=== PATIENT | male | born 1970 | race African-American/Black ===

== ENCOUNTER 2018-09-28 08:40 | Emergency (ER) | payer MEDICAID, MEDICARE ==
[2018-09-28 09:21] LABS: #Basophils 0.1 thou/uL (0.0-0.2); #Eosinphils 0.1 thou/uL (0.0-0.7); #Lymphocytes 2.5 thou/uL (1.20-3.40); #Monocytes 0.4 thou/uL (0.11-0.59); #Neutrophils 4.1 thou/uL (1.40-6.50); %Basophils 1.1 % (0.0-1.0); %Eosinophils 1.3 % (0.0-10.0); %Lymphocytes 34.6 % (21.0-51.0); %Monocytes 5.1 % (0.0-10.0); %Neutrophils 57.9 % (42.0-75.0); Hemoglobin 12.6 g/dL (14.0-18.0); Mean Corpuscular HGB CONC 31.7 g/dL (32.0-36.0); Mean Corpuscular Hemoglobin 22.7 pg (27.0-31.0); Mean Corpuscular Volume 71.7 fL (78.0-98.0); Mean Platelet Volume 11.5 fL (7.4-10.4); Platelet Count 139 thou/uL (130-400); RBC Distribution Width 16.9 % (11.5-14.5); Red Blood Cell (RBC) Count 5.53 mill/uL (4.70-6.10); White Blood Cell (WBC) Count 7.1 thou/uL (4.8-10.8)
--- NOTE | 2018-09-28 09:39 | RAD ---
Chest one view HISTORY: Chest pain. FINDINGS: No comparison. Cardiac silhouette is magnified and upper limits of normal in size. Pulmonar y vasculature is accentuated by shallow inspiration. Mediastinum is midline. Projecting over the lateral aspect of the left mid chest, an oval 1.9 cm soft tissue density is prese nt and may represent a pulmonary nodule. No evidence of pneumothorax or lobar consolidation. tax manager cpa leads overlie the chest. IMPRESSION: Possible left lung nodule, as detailed above. Please consider upright PA and lateral views of the chest for better evaluation before proceeding to CT scan.
[2018-09-28 09:48] LABS: ALT (SGPT) 12 U/L (8-55); AST (SGOT) 9 U/L (5-34); Alkaline Phosphatase 113 U/L (40-150); Anion Gap 18 mmol/L (10-20); BUN (Urea Nitrogen) 30 mg/dL (8.9-20.6); Bilirubin, Total 0.7 mg/dL (0.2-1.2); Calc. Creatinine Clearance 0 mL/min (70-130); Calcium 9.5 mg/dL (7.8-10.44); Carbon Dioxide 29 mmol/L (22-29); Chloride 95 mmol/L (98-107); Estimated GFR-MDRD 12; Globulin 3.4 g/dL (2.4-3.5); Glucose 201 mg/dL (70-105); Potassium 4.2 mmol/L (3.5-5.1); Protein, Total 7.4 g/dL (6.0-8.3); Sodium 138 mmol/L (136-145)
[2018-09-28 09:58] LABS: PTT 30.3 SEC (22.9-36.1)
== END 2018-09-28 12:15 ==
LOC: ERS 08:40
DX: R07.89 Other chest pain (principal); D64.9 Anemia, unspecified; E78.5 Hyperlipidemia, unspecified; M19.90 Unspecified osteoarthritis, unspecified site; E66.01 Morbid (severe) obesity due to excess calories; Z87.891 Personal history of nicotine dependence
CPT/HCPCS: 36415; 71045; 80053; 84484; 85025; 85610; 85730; 93005

== ENCOUNTER 2020-03-19 12:50 | Inpatient (IN) | payer MEDICARE, MEDICAID ==
--- NOTE | 2020-03-19 15:26 | PDOC.FPRHP ---
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 He presented to ED earlier today after having an episode of chest pain on Monday night. He has not had episodes of CP in the past and it has not recurred since Monday. The pain started after eating cheese and waffles and laying down to go to bed. The pain occurred centrally in the epigastric region without radiation to his L chest, back, neck, or L arm. He describes the pain as a burning sensation and he had an episode of vomiting before the pain self- resolved and he was able to go to sleep. He was not physically exerting himself at the time. He has a hx of heartburn. He denies having any heart hx, seeing a center director, or having a cath. His EKG in the ED was reportedly negative and his troponins were 0.015 -> 0.012. His dad had an ID in his 50s and his brother had one in his 40s. He denies hx of ID but endorses a hx of 2 strokes, the most recent of which occurred 2yrs ago. He has L sided deficits, as a result. ED Course: ED: Labetalol 20mg IV given at 0045. Trops and EKG as in HPI - Allergies/Adverse Reactions Allergies Allergy/AdvReac Type Severity Reaction Status Date / Time No Known Allergies Allergy Verified 03/19/20 13:05 - Home Medications Medication Instructions Recorded Confirmed Type Aspirin [Lincoln Chewable Aspirin] 81 mg PO DAILY 06/11/14 03/19/20 History Metoprolol Tartrate 25 mg PO BID 06/11/14 03/19/20 History Acetaminophen 650 mg PO Q4HR PRN 03/19/20 03/19/20 History Calcium Acetate 1,334 mg PO TID 03/19/20 03/19/20 History Famotidine [Pepcid] 20 mg PO BID 03/19/20 03/19/20 History Loperamide HCl [Loperamide] 2 mg PO DAILY PRN 03/19/20 03/19/20 History Loratadine 10 mg PO DAILY PRN 03/19/20 03/19/20 History Pregabalin [Lyrica] 75 mg PO HS 03/19/20 03/19/20 History Sevelamer Carbonate [Renvela] 2,400 mg PO TID-WM 03/19/20 03/19/20 History Temazepam 15 mg PO HS 03/19/20 03/19/20 History Venlafaxine [Effexor XR] 37.5 mg PO DAILY 03/19/20 03/19/20 History - History PMHx: obesity, 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 Smoking hx of 1ppd x20yrs but has since quit. - Review of Systems General: denies: fever/chills Respiratory: denies: cough, shortness of breath Cardiovascular: denies: chest pain Gastrointestinal: denies: nausea, vomiting, diarrhea Genitourinary: reports: incontinence (permanent an) Skin: denies: rashes Musculoskeletal: reports: other (b/l AKAs) - Vital signs BP: [] HR: [] RR: [] Tmax: [] Pox: []% on [] Wt: [] - Physical Exam Constitutional: NAD, awake, alert and oriented HEENT: normocephalic and atraumatic, EOMI, grossly normal vision, grossly normal hearing Neck: supple Heart: RRR, normal S1/S2, no murmurs/rubs/gallops, no edema Lungs: CTAB, no respiratory distress, good air movement Abdomen: soft, non-tender, bowel sounds present, no masses/distention Musculoskeletal: normal structure, other (B/l AKAs) -Musculoskeletal: Mild contracture of L fingers c/w deficits from stroke -Neurological: L sided weakness, still 5/5 Skin: no rash/lesions Psychiatric: normal mood and affect -Psychiatric: Question about mental capacity and concern for intellectual delay. FMR H&P: Results - Labs Result Diagrams: 03/19/20 15:06 03/19/20 15:06 FMR H&P: A/P - Plan This is a 50M who presented to the ED for an episode of CP and was admitted for a CP r/o. Chest pain - Low suspicion for ACS. Suspect GERD as the underlying cause but pt has multiple risk factors for heart disease - EKG nml, trops neg x3 - ASA, prn SL nitro - Tele obs - NPO at [place] for am pharm stress test. If negative, plan for discharge. If positive, will consult cards. ESRD, on HD - Technician Telecommunication Systems is Dr. Poe, who is aware of pt's admission - HD schedule is //Sat. Receiving HD today T2DM - Likely cause of ESRD. Known cause of b/l AKA - Not on any DM medications - ACHS accu-checks - Hypoglycemia protocol ordered B/l AKAs - As a complication of DM HTN - Continue home meds - BP 188/98 on arrival. HD should help lower this GERD - prn TUMS - home Pepcid Permanent an catheter - An care PVD - Likely contributing factor to b/l AKAs - - Starting Atorvastatin 40mg HLD - ASA, statin Obesity Hx of CVA - Per pt, has had 2. Most recent 2 yrs ago - LUE deficits - ASA, statin Dispo: admit to tele obs, expected LOS <48hrs. Code: Full IVF: N/A Diet: CC 1800kcal PCP: Karan FMR H&P: Upper Level - Pertinent history PCP: Karan HPI: [id number] with a PMH notable for ESRD on TThS HD, DMII & PVD s/p B/L AKA, CVA x2 w/ LUE residual deficits, HTN & GERD who was directly admitted from the [place] [facility] after presenting there complaining of chest pain. Per the patient he had an episode of substernal chest pain on Monday lasting a few minutes before subsiding on its own. Described it as burning pain that was non- radiating without associated SOB. Did have an episode of vomiting that evening as well. Reports the pain may have been caused by eating fatty foods he had that night for dinner as it felt similar to heartburn pain. Reportedly had a similar episode years ago. Has a FH notable for ID in 40s & 50s in his brother and father. No personal Hx of CAD. ED course: IV labetalol 20mg See Pharmacist note for details of PMH. - Pertinent findings Labs/Imaging: EKG NSR Troponin [phone] < 0.010 REVIEW OF SYSTEMS: Gen: no fever, chills Neuro: no syncope, no new weakness Eyes: no visual changes, no eye pain ENT: no sore throat, no congestion Resp: no cough, no SOB Card: + chest pain, no edema GI: no D/C, no abdominal pain, + N/V : no hematuria, no incontinence MSK: no myalgias or arthritis Heme: on ASA Skin: no rash/itching Vitals: BP: 188/98 HR: 84 RR: 22 Tmax: 97.9F Pox: 98% on RA Wt: 144.2 kg PHYSICAL EXAMINATION: General: NAD, alert and oriented x4 HEENT: normocephalic atraumatic Neck: Supple. Full ROM. Heart/Cardiovascular System: RRR, no murmur Lungs/Respiratory System: CTAB Abdomen/Gastro-Intestinal System: soft w/ no abdominal tenderness, normal bowel sounds Extremities: Warm extremities. s/p B/L AKA. Neuro: Limited ROM in left hand 2/2 prior CVA w/ 4/5 pretzel cooker strength on left compared to 5/5 on right; CN 2-12 grossly intact. Psychiatry: Awake, Alert and cooperative with exam. Skin: No lesions, rashes, or ulcers noted. - Plan Date/Time: 03/19/20 1525 IItzel, have evaluated this patient and agree with findings/plan as o utlined by recruiting internship resident. Pertinent changes/additions are listed here. A/P: #Atypical chest pain 2/2 GERD vs. ACS: Patient reported his chest pain was most likely GERD and story does sound suspicious for this. EKG WNLs & troponins negative x3. However, given his extensive family history and multiple risk factors, will admit for observation overnight with plans to undergo cardiac stress test in the AM. Will make NPO at midnight. Will have PRN nitro available should chest pain recur. Will continue home GERD medication as well. #ESRD on [facility]ThS HD: -Patient undergoing HD during exam in alignment with TTHS HD schedule. Will co ntinue to renally dose meds PRN. #HTN -Will resume home meds. #DMII -Will resume home meds & check an A1c for risk stratification as well. Hypoglyc emia protocol. Mild SSI PRN. CC, renal & HH diet #PVD s/p B/L AKA -Resume home ASA & Statin #GERD -Resume home meds. #Hx CVA x2 -Resume home ASA & statin ABx: None IVFs: SL VTE PPX: Heparin GI PPX: Home Pepcid Code status: FULL CODE Dispo: Admit to telemetry floor for monitoring overnight and stress in AM.
[2020-03-19 15:38] LABS: Hemoglobin 10.4 g/dL (14.0-18.0); Mean Corpuscular HGB CONC 31.3 g/dL (32.0-36.0); Mean Corpuscular Hemoglobin 22.1 pg (27.0-31.0); Mean Corpuscular Volume 70.6 fL (78.0-98.0); Mean Platelet Volume 10.6 fL (7.4-10.4); Platelet Count 151 thou/uL (130-400); RBC Distribution Width 15.7 % (11.5-14.5); Red Blood Cell (RBC) Count 4.72 mill/uL (4.70-6.10); White Blood Cell (WBC) Count 8.4 thou/uL (4.8-10.8)
[2020-03-19 15:56] LABS: ALT (SGPT) 10 U/L (8-55); AST (SGOT) 8 U/L (5-34); Albumin 3.8 g/dL (3.5-5.0); Alkaline Phosphatase 116 U/L (40-110); Anion Gap 16 mmol/L (10-20); BUN (Urea Nitrogen) 29 mg/dL (8.9-20.6); Bilirubin, Total 0.4 mg/dL (0.2-1.2); Calc. Creatinine Clearance 33 mL/min (70-130); Calcium 9.1 mg/dL (7.8-10.44); Carbon Dioxide 28 mmol/L (22-29); Chloride 96 mmol/L (98-107); Globulin 3.7 g/dL (2.4-3.5); Glucose 111 mg/dL (70-105); Potassium 3.2 mmol/L (3.5-5.1); Protein, Total 7.5 g/dL (6.0-8.3); Sodium 137 mmol/L (136-145)
[2020-03-19] MEDS ORDERED: Nitroglycerin 0.4 MG TAB (25 Tab Bottle) SL PRN (16:02)
[2020-03-19 16:36] LABS: Hemoglobin A1c 6.5 % (4.0-6.0)
[2020-03-19] MEDS ORDERED: Calcium Carbonate 500 MG ChewTAB PO PRN (16:53)
[2020-03-19] MEDS ORDERED: Loratadine 10 MG TAB PO PRN (17:19)
[2020-03-19] MEDS ORDERED: Temazepam 15 MG CAP PO PRN (17:19)
[2020-03-19] MEDS ORDERED: Loperamide HCl 2 MG CAP PO PRN (17:24)
[2020-03-19] MEDS ORDERED: Acetaminophen 325 MG TAB PO PRN (17:24)
[2020-03-19] MEDS: Pregabalin 75 MG CAP PO SCH (21:05)
[2020-03-19] MEDS: Venlafaxine HCl 37.5 MG TAB PO SCH (21:05)
[2020-03-19] MEDS: Atorvastatin Calcium 40 MG TAB PO SCH (21:05)
[2020-03-19] MEDS: Metoprolol Tartrate 25 MG TAB PO SCH (21:05)
[2020-03-19] MEDS: Heparin 5,000 UNITS/ML VIAL SC SCH (21:05)
[2020-03-19] MEDS: Famotidine 20 MG TAB PO SCH (21:05)
[2020-03-20 04:40] LABS: Cardiac Risk 4.2 (Less than 4.5)
--- NOTE | 2020-03-20 06:08 | PDOC.FM ---
- Subjective Subjective: Mr. Carrillo is doing well this morning and has no complaints. He denies any CP, SOB, N/V, abdominal pain. He is still agreeable to getting a stress test this morning. - Objective Vital Signs & Weight: Vital Signs (12 hours) Temp Pulse Resp BP Pulse Ox 03/20/20 04:55 98.1 F 81 18 133/76 98 03/19/20 19:35 97.5 F L 84 18 116/67 98 Weight Weight 144.2 kg I&O: 03/18/20 03/19/20 03/20/20 06:59 06:59 06:59 Output Total 0 Balance 0 Result Diagrams: 03/20/20 06:25 03/20/20 06:25 Phys Exam - Physical Examination Constitutional: NAD Neck: supple, full ROM Respiratory: clear to auscultation bilateral Cardiovascular: RRR, no significant murmur Gastrointestinal: soft, non-tender, no distention, positive bowel sounds Musculoskeletal: pulses present (2+ radial b/l. dp pulses surgically absent) Neurological: non-focal Psychiatric: normal affect, A&O x 3 Skin: no rash Dx/Plan - Plan Plan: This is a 50M who presented to the ED for an episode of CP and was admitted for a CP r/o. Chest pain - Low suspicion for ACS. Suspect GERD as the underlying cause but pt has m ultiple risk factors for heart disease - EKG nml, trops neg x3 - ASA, prn SL nitro - Tele obs - Pharm stress test today. If negative, plan for discharge. If positive, will consult cards. ESRD, on HD - Aids Nurse is Dr. Poe, who is aware of pt's admission - HD schedule is //Mon T2DM - Likely cause of ESRD. Known cause of b/l AKA - Not on any DM medications - ACHS accu-checks - Hypoglycemia protocol ordered B/l AKAs - Complication of DM - Ambulate with assist HTN - Improved with HD. Continue to monitor. - Continue home meds GERD - prn TUMS - home Pepcid Permanent li catheter - Li care PVD - Likely contributing factor to b/l AKAs - Atorvastatin 40mg HLD - ASA, statin Obesity Hx of CVA - Per pt, has had 2. Most recent 2 yrs ago - LUE deficits - ASA, statin Dispo: admit to tele obs, expected LOS <24hrs pending results of stress test. Code: Full IVF: N/A Diet: CC 1800kcal PCP: Karan
[2020-03-20 06:44] LABS: #Eosinphils 0.1 thou/uL (0.0-0.7); #Lymphocytes 2.2 thou/uL (1.20-3.40); #Monocytes 0.5 thou/uL (0.11-0.59); #Neutrophils 4.5 thou/uL (1.40-6.50); %Basophils 0.6 % (0.0-1.0); %Eosinophils 1.6 % (0.0-10.0); %Lymphocytes 29.6 % (21.0-51.0); %Monocytes 6.9 % (0.0-10.0); %Neutrophils 61.3 % (42.0-75.0); Hemoglobin 10.3 g/dL (14.0-18.0); Mean Corpuscular HGB CONC 31.7 g/dL (32.0-36.0); Mean Corpuscular Hemoglobin 21.8 pg (27.0-31.0); Mean Corpuscular Volume 68.7 fL (78.0-98.0); Mean Platelet Volume 11.5 fL (7.4-10.4); Platelet Count 157 thou/uL (130-400); RBC Distribution Width 15.6 % (11.5-14.5); Red Blood Cell (RBC) Count 4.73 mill/uL (4.70-6.10); White Blood Cell (WBC) Count 7.4 thou/uL (4.8-10.8)
[2020-03-20 07:03] LABS: ALT (SGPT) 8 U/L (8-55); AST (SGOT) 10 U/L (5-34); Albumin 3.6 g/dL (3.5-5.0); Alkaline Phosphatase 117 U/L (40-110); Anion Gap 20 mmol/L (10-20); BUN (Urea Nitrogen) 23 mg/dL (8.9-20.6); Bilirubin, Total 0.5 mg/dL (0.2-1.2); Calc. Creatinine Clearance 30 mL/min (70-130); Calcium 9.1 mg/dL (7.8-10.44); Carbon Dioxide 23 mmol/L (22-29); Chloride 100 mmol/L (98-107); Globulin 3.6 g/dL (2.4-3.5); Glucose 154 mg/dL (70-105); Potassium 4.6 mmol/L (3.5-5.1); Protein, Total 7.2 g/dL (6.0-8.3); Sodium 138 mmol/L (136-145)
[2020-03-20] MEDS ORDERED: HumaLOG 300 UNITS/3 ML VIAL SC PRN ×2 (07:15)
[2020-03-20] MEDS ORDERED: Dextrose 50% Abboject 50 ML SYRINGE SLOW IVP PRN (07:15)
[2020-03-20] MEDS ORDERED: Dextrose 5% in Water 1,000 ML IV PRN (07:15)
[2020-03-20] MEDS: Sevelamer Carbonate 800 MG TAB PO SCH ×3 (08:27→17:19)
[2020-03-20] MEDS: Famotidine 20 MG TAB PO SCH (08:27)
[2020-03-20] MEDS: Aspirin Chewable 81 MG TAB PO SCH (08:27)
[2020-03-20] MEDS: Heparin 5,000 UNITS/ML VIAL SC SCH ×3 (08:28→20:25)
[2020-03-20] MEDS: Pregabalin 75 MG CAP PO SCH ×2 (08:28→20:24)
[2020-03-20] MEDS: Venlafaxine HCl 37.5 MG TAB PO SCH ×2 (08:28→20:24)
[2020-03-20] MEDS: Calcium Acetate 667 MG CAP PO SCH ×3 (08:28→17:19)
[2020-03-20] MEDS: Metoprolol Tartrate 25 MG TAB PO SCH ×2 (08:29→20:24)
--- NOTE | 2020-03-20 08:58 | CON ---
DATE OF CONSULTATION: 03/20/2020 HISTORY OF PRESENT ILLNESS: Mr. Carrillo is a 50-year-old black male with ESRD from a presumed diabetic nephropathy, longstanding hypertension, peripheral vascular disease, type 2 diabetes mellitus, who was admitted for chest pain. He is being ruled out for AR. We are now being consulted for maintenance hemodialysis and management of his ESRD. This morning, chest pain is much improved. REVIEW OF SYSTEMS: Intermittent chest pain. No shortness of breath. No syncopal episode. No productive cough. No fever or chills. Appetite and energy level are fair. No headache. No diplopia. No cough. No gross hematuria. No dysuria. No urinary frequency. HOME MEDICATIONS: Include; 1. Aspirin 81 mg daily. 2. Metoprolol tartrate 25 mg p.o. b.i.d. 3. Calcium acetate 1334 mg p.o. t.i.d. 4. Pepcid 20 mg b.i.d. 5. Loratadine 10 mg daily p.r.n. 6. Lyrica 75 mg at bedtime. 7. Renvela 800 mg four tabs t.i.d. with meals. 8. Effexor XR 37.5 mg tab daily. PAST MEDICAL HISTORY: ESRD from diabetic nephropathy, type 2 diabetes mellitus, hypertension, status post CVA, peripheral vascular disease. PAST SURGICAL HISTORY: Status post cuffed hemodialysis catheter placement, status post AV fistula placement, status post bilateral AKA. FAMILY HISTORY: Positive family history of ESRD. Mother was on dialysis. ALLERGIES: NO KNOWN DRUG ALLERGIES. TRAUMA: None. IMMUNIZATIONS: Up to date. HOSPITALIZATIONS: Please see past medical history. SOCIAL HISTORY: The patient currently in [facility]. Originally from [place], [place]. Single, no children. Smoked for 20 years, 1 pack per day. No alcohol. No IV drug abuse. Status post blood transfusion. Education, primary grade. 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 PHYSICAL EXAMINATION: VITAL SIGNS: Blood pressure is 155/81, heart rate 82, respiratory rate 18, temperature 98.1, and O2 saturation 99% on room air. GENERAL: The patient is awake, alert, comfortable, obese, not in distress. SKIN: Adequate turgor. HEENT: He has slightly pale conjunctivae. Anicteric sclerae. NECK: No neck mass. No carotid bruits. No JVD. CHEST: No deformities. LUNGS: Clear breath sounds. No wheezing. No crackles. HEART: Normal sinus rhythm. No murmur. No gallops. No rubs. ABDOMEN: Globular, soft, nontender. No masses. EXTREMITIES: Bilateral AKA. NEUROLOGICAL: Awake. Oriented to 3 spheres. Moving all extremities. No tremors. No asterixis. No ataxia. LABORATORY DATA: Laboratories of March 20, 2020: White count 7.4, hemoglobin 10.3. Sodium 138, potassium 4.6, chloride 100, carbon dioxide 23, BUN 23, creatinine 6.03, glucose 154, calcium 9.1, albumin 3.6. Cholesterol 131. ASSESSMENT AND PLAN: 1. End-stage renal disease - from diabetic nephropathy. Continuing Monday, , Monday dialysis. He did undergo hemodialysis yesterday without any difficulty. Our plan is to continue his 4-hour hemodialysis with fluid removal as tolerated. Please note, the last Kt/V suggests the patient is well dialyzed with the current dialysis regimen. 2. Hyperphosphatemia. Continue PhosLo as well as Renvela. 3. Chest pain, the patient is being ruled out for myocardial infarction. Thank you for the consult. We will continue to follow. Job ID: [id number]
[2020-03-20] MEDS ORDERED: FLU VACC QS2020-21(6MOS UP)/PF 60 MCG/0.5 ML SYRINGE IM ONE (09:00)
[2020-03-20] MEDS ORDERED: Prevnar 13-Val Conj/PF 0.5 ML SYRINGE IM ONE (09:00)
[2020-03-20] MEDS ORDERED: Regadenoson 0.4 MG/5 ML SYRINGE ONE (11:06)
[2020-03-20 14:00] VITALS: BMI 39.7
[2020-03-20] MEDS: Atorvastatin Calcium 40 MG TAB PO SCH (20:24)
[2020-03-21] MEDS ORDERED: hydrALAZINE 20 MG/ML VIAL SLOW IVP PRN (04:51)
[2020-03-21] MEDS ORDERED: hydrALAZINE 25 MG TAB PO PRN (04:53)
--- NOTE | 2020-03-21 06:06 | PDOC.FM ---
- Subjective Subjective: Patient is resting comfortably in bed. No concerns. Denies chest pain, shortness of breath, abdominal pain, n/v. Overnight patient's bps did get up to 218/107, the resident team was called, hydralazine prn was added and given, and nifedipine was started for this morning. He is getting the second part of his stress test today and dialysis. - Objective MAR Reviewed: Yes Vital Signs & Weight: Vital Signs (12 hours) Temp Pulse Resp BP BP Pulse Ox 03/21/20 06:01 175/82 H 03/21/20 05:10 70 217/101 H 03/21/20 04:44 218/107 H 03/21/20 04:00 97.8 F 70 18 100 03/20/20 19:10 97.3 F L 81 16 136/65 97 Weight Admit Weight 144.2 kg Weight 144.2 kg I&O: 03/19/20 03/20/20 03/21/20 06:59 06:59 06:59 Intake Total 240 970.5 Output Total 250 Balance -10 970.5 Result Diagrams: 03/20/20 06:25 03/20/20 06:25 Phys Exam - Physical Examination Constitutional: NAD HEENT: PERRLA, moist MMs Respiratory: no wheezing, clear to auscultation bilateral Cardiovascular: RRR, no significant murmur Gastrointestinal: soft, non-tender, positive bowel sounds bilateral AKAs Psychiatric: normal affect Dx/Plan - Plan Plan: This is a 50M who presented to the ED for an episode of CP and was admitted for a CP r/o. Chest pain - Low suspicion for ACS. Suspect GERD as the underlying cause but pt has multiple risk factors for heart disease - EKG nml, trops neg x3 - ASA, prn SL nitro - Tele obs - Pharm stress test today part 2/ . If negative, possible d/c today pending bps. If positive, will consult cards. ESRD, on HD - Labor Relations Officer is Dr. Poe, who is aware of pt's admission - HD schedule is //Mon - will get dialysis today T2DM - Likely cause of ESRD. Known cause of b/l AKA - Not on any DM medications - ACHS accu-checks - Hypoglycemia protocol ordered B/l AKAs - Complication of DM - Ambulate with assist HTN - Improved with HD. - Added nifedipine to daily bp medication - will continue to monitor GERD - prn TUMS - home Pepcid Permanent an catheter - An care PVD - Likely contributing factor to b/l AKAs - Atorvastatin 40mg HLD - ASA, statin Obesity Hx of CVA - Per pt, has had 2. Most recent 2 yrs ago - LUE deficits - ASA, statin Dispo: admit to tele obs, expected LOS <24hrs pending results of stress test. Code: Full IVF: N/A Diet: CC 1800kcal PCP: Karan Addendum - Attending - Attending Attestation Date/Time: 03/21/202035 I personally evaluated the patient and discussed the management with Dr. Gonzalez. I agree with the History, Examination, Assessment and Plan documented above with any addition or exceptions noted below. Failed stress test- declined cath per cards. Medical management HTN-started nifedinpine this am. Monitor bp overnight and potential d/c tomorrow. ESRD- dialysis per nephro.
--- NOTE | 2020-03-21 07:34 | PRG ---
DATE OF SERVICE: 03/20/2020 ADDENDUM: Please add this is an addendum to the note of Dr. Askew. I have read the note of Dr. Askew and discussed the case with her. I agree with her assessment and plan. Job ID: [id number]
[2020-03-21] MEDS: Heparin 5,000 UNITS/ML VIAL SC SCH ×3 (08:53→20:13)
[2020-03-21] MEDS: Sevelamer Carbonate 800 MG TAB PO SCH ×3 (08:53→17:03)
[2020-03-21] MEDS: Calcium Acetate 667 MG CAP PO SCH ×3 (08:53→17:03)
[2020-03-21] MEDS ORDERED: NIFEdipine XL 30 MG TAB PO SCH (09:00)
--- NOTE | 2020-03-21 10:13 | PRG ---
DATE OF SERVICE: 03/21/2020 SUBJECTIVE: Mr. Carrillo is a 50-year-old black male with ESRD, who was admitted for chest pain. He is currently undergoing a cardiac stress test to rule out any cardiac ischemia. He is currently undergoing at the same time hemodialysis today, attempting fluid removal only as tolerated. No other complaints. No chest pain or shortness of breath. OBJECTIVE: VITAL SIGNS: Blood pressure 196/105, before BP medications; heart rate 79; respiratory rate 16; temperature 98.9; and O2 saturation 99%. GENERAL: Noted to be awake, alert, comfortable, and not in overt distress. SKIN: Adequate turgor. HEENT: Pinkish conjunctivae. Anicteric sclerae. NECK: No neck mass. No carotid bruits. No JVD. CHEST: No deformities. LUNGS: Clear breath sounds. HEART: Normal sinus rhythm. No murmur. No gallops. No rubs. ABDOMEN: Globular. Soft and nontender. No masses. EXTREMITIES: Bilateral AKAs. MEDICATIONS: Of March 21, 2020, are reviewed. LABORATORY DATA: March 20, 2020: White count 7.4 and hemoglobin 10.3. Sodium 138, potassium 4.6, chloride 100, carbon dioxide 23, BUN 23, and creatinine 6.03. AST 10 and ALT 8. March 21, 2020: Glucose 139. ASSESSMENT AND PLAN: 1. Chest pain: The patient is being worked up for cardiac ischemia. A cardiac stress test is scheduled this afternoon. 2. End-stage renal disease, stable: We will continue current Monday, , Monday hemodialysis. Again, fluid removal as tolerated by the patient. 3. Hypertension: Adjusting blood pressure medications. Nifedipine was recently started this morning. Agree with the current management. Job ID: [id number]
[2020-03-21] MEDS: Metoprolol Tartrate 25 MG TAB PO SCH ×2 (13:36→20:13)
[2020-03-21] MEDS: NIFEdipine XL 30 MG TAB PO SCH (13:36)
[2020-03-21] MEDS: Famotidine 20 MG TAB PO SCH (13:36)
[2020-03-21] MEDS: Pregabalin 75 MG CAP PO SCH ×2 (13:37→20:13)
[2020-03-21] MEDS: Venlafaxine HCl 37.5 MG TAB PO SCH ×2 (13:38→20:13)
[2020-03-21] MEDS: Aspirin Chewable 81 MG TAB PO SCH (13:38)
--- NOTE | 2020-03-21 14:07 | NM ---
NM Cardiac Stress W EF WF History: Chest pain Comparison: None. Findings: Exam is limited as the patient's arms at their side. Low-grade reversible ischemia midporti on left inferior and lateral wall. Ejection fraction calculated at 49%. Impression: Findings of low-grade reversible ischemia inferior lateral wall midportion left ventricle .
[2020-03-21] MEDS: Atorvastatin Calcium 40 MG TAB PO SCH (20:13)
--- NOTE | 2020-03-22 06:06 | PDOC.FM ---
- Subjective Subjective: Patient is resting comfortably in bed. No events overnight, no acute concerns. Denies chest pain, shortness of breath, abdominal pain, f/chills. - Objective MAR Reviewed: Yes Vital Signs & Weight: Vital Signs (12 hours) Temp Pulse Resp BP Pulse Ox 03/22/20 03:53 98.6 F 85 11 L 126/76 99 03/21/20 20:00 98.4 F 88 16 115/73 94 L Weight Admit Weight 144.2 kg Weight 135.624 kg I&O: 03/20/20 03/21/20 03/22/20 06:59 06:59 06:59 Intake Total 240 970.5 240 Output Total 250 250 Balance -10 970.5 -10 Result Diagrams: 03/20/20 06:25 03/20/20 06:25 Phys Exam - Physical Examination Constitutional: NAD HEENT: PERRLA, moist MMs Respiratory: no wheezing, clear to auscultation bilateral Cardiovascular: RRR, no significant murmur Gastrointestinal: soft, non-tender, positive bowel sounds Musculoskeletal: no edema Psychiatric: normal affect Skin: no rash Dx/Plan - Plan Plan: This is a 50M who presented to the ED for an episode of CP and was admitted for a CP r/o. Chest pain, presumed multifactorial 2/2 GERD and CAD - Suspect GERD due to presentation, stress + for CAD - EKG nml, trops neg x3 - ASA, prn SL nitro - Tele obs - Pharm stress test 2/2: Findings of low grade reversible ischemia inferior lateral wall midportion left ventricle - Dr. Mcginnis (cards) consulted, appreciate recs - Patient did not want any surgical intervention at this time, will proceed with medical management - touched base today, patient is clear to discharge on BB, statin, aspirin with f/u in 2 weeks ESRD, on HD - Nuclear Worker Technician is Dr. Poe, who is aware of pt's admission - HD schedule is //Mon - Received dialysis yesterday - will continue to follow outpatient T2DM - Likely cause of ESRD. Known cause of b/l AKA - Not on any DM medications - ACHS accu-checks - Hypoglycemia protocol ordered B/l AKAs - Complication of DM - aware HTN - Improved with HD. - Added nifedipine to daily bp medication - will continue to monitor GERD - prn TUMS - home Pepcid Permanent an catheter - An care PVD - Likely contributing factor to b/l AKAs - Atorvastatin 40mg HLD - ASA, statin Obesity Hx of CVA - Per pt, has had 2. Most recent 2 yrs ago - LUE deficits - ASA, statin Dispo: likely d/c today with cards and PCP f/u Code: Full IVF: N/A Diet: CC 1800kcal PCP: Karan Addendum - Attending - Attending Attestation Date/Time: 03/22/20 9685 I personally evaluated the patient and discussed the management with Dr. Gonzalez I agree with the History, Examination, Assessment and Plan documented above with any addition or exceptions noted below. Abnormal stress- presumed CAD- patient opted for medical therapy and declined cath. Stable for home on asa, statin and beta kizzy. HTN- bp stable with nifedipine d/c home with f/u with PCP and cards.
[2020-03-22] MEDS: Aspirin Chewable 81 MG TAB PO SCH (08:12)
[2020-03-22] MEDS: Famotidine 20 MG TAB PO SCH (08:12)
[2020-03-22] MEDS: Sevelamer Carbonate 800 MG TAB PO SCH ×2 (08:12→11:20)
[2020-03-22] MEDS: NIFEdipine XL 30 MG TAB PO SCH (08:12)
[2020-03-22] MEDS: Venlafaxine HCl 37.5 MG TAB PO SCH (08:12)
[2020-03-22] MEDS: Heparin 5,000 UNITS/ML VIAL SC SCH (08:12)
[2020-03-22] MEDS: Calcium Acetate 667 MG CAP PO SCH ×2 (08:12→11:20)
[2020-03-22] MEDS: Pregabalin 75 MG CAP PO SCH (08:13)
[2020-03-22] MEDS: Metoprolol Tartrate 25 MG TAB PO SCH (08:13)
--- NOTE | 2020-03-22 09:47 | PRG ---
DATE OF SERVICE: 03/22/2020 SUBJECTIVE: Mr. Carrillo is a 50-year-old black male with ESRD, who was admitted for chest pain. He underwent a cardiac stress test with positive finding. He declined further surgical intervention. He would like to be managed medically. This morning, he voices no new complaints. He denies any chest pain or shortness of breath. OBJECTIVE: VITAL SIGNS: Blood pressure is 128/69, heart rate 86, respiratory rate 17, temperature 98.5, O2 saturation 96% on room air. GENERAL: The patient is awake, alert, comfortable, obese, not in distress. SKIN: Adequate turgor. HEENT: Pinkish conjunctivae. Anicteric sclerae. NECK: No neck mass. No carotid bruits. No JVD. CHEST: No deformities. LUNGS: Clear breath sounds. No wheezing. No crackles. HEART: Normal sinus rhythm. No murmur. No gallops. No rubs. ABDOMEN: Globular, soft, nontender. No masses. EXTREMITIES: Bilateral leg amputations. MEDICATIONS: On March 22, 2020, were reviewed. LABORATORY DATA: On March 20, 2020; white count 7.4, hemoglobin 10.3. On March 20, 2020; sodium 138, potassium 4.6, chloride 100, carbon dioxide 23, BUN 23, creatinine 6.03, AST 10, ALT 8. ASSESSMENT AND PLAN: 1. End-stage renal disease, stable, tolerating hemodialysis regimen. The patient did undergo hemodialysis yesterday with fluid removal. We will continue current 3 times a week hemodialysis. 2. Chest pain, resolved. Medical management. The patient will be discharged today. Job ID: [id number]
--- NOTE | 2020-03-22 10:43 | PDOC.CPN ---
- Subjective Date: 03/22/20 Time: 09:20 Interval history: no overnight events. No CP/SOB. - Review of Systems General: denies: fever/chills, weight/appetite/sleep changes, night sweats, fatigue Respiratory: denies: cough, congestion, shortness of breath, exercise intolerance Cardiovascular: denies: chest pain, palpitation, edema, paroxysmal nocturnal dyspnea, orthopnea Gastrointestinal: denies: nausea, vomiting, diarrhea, constipation, abd pain, GI bleeding Musculoskeletal: denies: pain, tenderness, stiffness, swelling, arthritis/arthralgias Neurological: denies: numbness, syncope, seizure, weakness - Objective Allergies/Adverse Reactions: Allergies Allergy/AdvReac Type Severity Reaction Status Date / Time No Known Allergies Allergy Verified 03/19/20 13:05 Visit Medications: Current Medications Acetaminophen (Acetaminophen 325 Mg Tab) 650 mg PO Q4H PRN PRN Reason: Pain Aspirin (Aspirin Chewable 81 Mg Tab) 81 mg PO DAILY [facility] Last Admin: 03/22/20 08:12 Dose: 81 mg Documented by: Atorvastatin Calcium (Atorvastatin Calcium 40 Mg Tab) 40 mg PO [facility] Last Admin: 03/21/20 20:13 Dose: 40 mg Documented by: Calcium Acetate (Calcium Acetate 667 Mg Cap) 1,334 mg PO TID-[facility] Last Admin: 03/22/20 08:12 Dose: 1,334 mg Documented by: Calcium Carbonate (Calcium Carbonate 500 Mg Chewtab) 1,000 mg PO DAILYPRN PRN PRN Reason: Heartburn or Indigestion Dextrose/Water (Dextrose 50% Abboject 50 Ml Syringe) 25 gm SLOW IVP PRN PRN PRN Reason: Hypoglycemia Famotidine (Famotidine 20 Mg Tab) 20 mg PO DAILY [facility] Last Admin: 03/22/20 08:12 Dose: 20 mg Documented by: Glucagon (Glucagon 1 Mg/Ml Vial) 1 mg IM PRN PRN PRN Reason: Hypoglycemia Heparin Sodium (Porcine) (Heparin 5,000 Units/Ml Vial) 5,000 units SC TID [facility] Last Admin: 03/22/20 08:12 Dose: 5,000 units Documented by: Hydralazine HCl (Hydralazine 20 Mg/Ml Vial) 10 mg SLOW IVP Q4H PRN PRN Reason: Systolics >180 Last Admin: 03/21/20 05:10 Dose: 10 mg Documented by: Dextrose/Water (D5w) 1,000 mls @ 0 mls/hr IV .Q0M PRN PRN Reason: Hypoglycemia Insulin Human Lispro (Humalog 300 Units/3 Ml Vial) 0 units SC .MILD SLIDING SCALE PRN PRN Reason: Mild Correctional Scale Insulin Human Lispro (Humalog 300 Units/3 Ml Vial) 0 units SC .BEDTIME SLIDING SC PRN PRN Reason: Bedtime Correctional Scale Loperamide HCl (Loperamide Hcl 2 Mg Cap) 2 mg PO DAILY PRN PRN Reason: Diarrhea/Loose Stools Loratadine (Loratadine 10 Mg Tab) 10 mg PO DAILYPRN PRN PRN Reason: Allergies Metoprolol Tartrate (Metoprolol Tartrate 25 Mg Tab) 25 mg PO BID [facility] Last Admin: 03/22/20 08:13 Dose: 25 mg Documented by: Nifedipine (Nifedipine Xl 30 Mg Tab) 30 mg PO DAILY [facility] Last Admin: 03/22/20 08:12 Dose: 30 mg Documented by: Nitroglycerin (Nitroglycerin 0.4 Mg Tab (25 Tab Bottle)) 0.4 mg SL Q5MIN PRN PRN Reason: Chest Pain Pregabalin (Pregabalin 75 Mg Cap) 75 mg PO BID [facility] Last Admin: 03/22/20 08:13 Dose: 75 mg Documented by: Sevelamer Carbonate (Sevelamer Carbonate 800 Mg Tab) 2,400 mg PO TID-[facility] Last Admin: 03/22/20 08:12 Dose: 2,400 mg Documented by: Sodium Chloride (Flush - Normal Saline 10 Ml Syringe) 10 ml IVF PRN PRN PRN Reason: Saline Flush Temazepam (Temazepam 15 Mg Cap) 15 mg PO HSPRN PRN PRN Reason: Insomnia Venlafaxine HCl (Venlafaxine Hcl 37.5 Mg Tab) 37.5 mg PO BID [facility] Last Admin: 03/22/20 08:12 Dose: 37.5 mg Documented by: Vital Signs & Weight: Vital Signs Temp Pulse Resp BP Pulse Ox 03/22/20 07:29 98.5 F 86 17 128/69 96 03/22/20 03:53 98.6 F 85 11 L 126/76 99 Admit Weight 317 lb 14.505 oz Weight 299 lb - Physical Exam General: alert & oriented x3, appears well, no apparent distress HEENT: mucus membranes moist Neck: supple neck Cardiac: regular rate and rhythm Lungs: clear to auscultation Neuro: grossly intact Abdomen: soft, non-tender Extremities: 1+ LE edema Skin: clear Musculoskeletal: no pain - Labs Result Diagrams: 03/20/20 06:25 03/20/20 06:25 - Assessment/Plan Assessment/Plan: 1. Abnormal stress 2. ESRD 3. DM 4. Obesity Patient asymptomatic. D/W RG. Low risk scan small area ischemia. Would treat conservatively for now with medical mgmt. Will f/u as outpatient.
[2020-03-22 11:39] VITALS: BP 121/74; TEMP 98.2
--- NOTE | 2020-03-22 12:52 | CON ---
DATE OF CONSULTATION: 03/21/2020 REASON FOR CONSULTATION: Chest pain and abnormal stress study. 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 HISTORY OF PRESENT ILLNESS: Mr. Carrillo is a 50-year-old gentleman with past medical history of end-stage renal disease, who recently presented with chest pain. He states the chest pain lasted for 1 hour. It was moderate in nature. He was seen and evaluated at [facility] in [place] and transferred to [facility]. His CK and troponin were negative. PAST MEDICAL HISTORY: Hypertension, PVD, diabetes mellitus, and CVA. HOME MEDICATIONS: Include, 1. Aspirin. 2. Metoprolol. 3. Calcium. 4. Pepcid. 5. Loratadine. 6. Lyrica. 7. Renvela. 8. Effexor. SURGICAL HISTORY: Hemodialysis catheter, bilateral AKA. ALLERGIES: NONE. REVIEW OF SYSTEMS: A 10-point review of systems is reviewed and as above, otherwise negative. PHYSICAL EXAMINATION: GENERAL: Patient is a pleasant gentleman, who is in no acute distress. The patient appears their stated age. VITAL SIGNS: Blood pressure 125/60, pulse 86, temperature 98.3. NEUROLOGIC: The patient is alert and oriented x3 with no focal neurologic deficits. HEENT: Sclerae without icterus. Mouth has moist mucous membranes with normal pallor. NECK: No JVD. Carotid upstroke brisk. No bruits bilaterally. LUNGS: Clear to auscultation with unlabored respirations. BACK: No scoliosis or kyphosis. CARDIAC: Regular rate and rhythm with normal S1 and S2. No S3 or S4 noted. No significant rubs, murmurs, thrills, or gallops noted throughout the precordium. PMI is not displaced. There is no parasternal heave. ABDOMEN: Soft, nontender, nondistended. No peritoneal signs present. No hepatosplenomegaly. No abnormal striae. EXTREMITIES: 2+ femoral and 2+ dorsalis pedis pulses. No cyanosis, clubbing, or edema. SKIN: No gross abnormalities. PERTINENT LABORATORY DATA: Creatinine 6.03, BUN 23. Stress-rest myocardial perfusion study, LVEF 49% with mild ischemia noted to the inferolateral wall. IMPRESSION: 1. Chest pain. 2. End-stage renal disease. 3. Peripheral vascular disease. 4. Diabetes mellitus. 5. Abnormal stress study. RECOMMENDATIONS: Mr. Carrillo's stress study was felt to be low risk with inferolateral wall ischemia. LVEF at the lower limits of normal at 49%. I discussed two options with Mr. Carrillo. I discussed proceeding with medical therapy versus coronary angiography. I discussed risks and benefits of coronary angiography that included, but not limited to the following: . I also discussed medical therapy with Mr. Carrillo. Medical therapy would include aspirin in addition to statin therapy and continue metoprolol and adding plus or minus Imdur. The patient is reluctant to proceed with a more aggressive approach. From my standpoint, based on LVEF at lower limits of normal with one episode of pain only, it seems reasonable to proceed with a more conservative approach. We will add statin therapy and nitrates in a.m. If stable overnight, plan is discharge. It will be okay from my standpoint to discharge this evening if the patient would like to proceed with discharge. Job ID: [id number]
--- NOTE | 2020-03-24 03:32 | PQF ---
Dear : Angela Sibley Date 03/24/20 Please exercise your independent, professional judgment in responding to the clarification form. Clinical indicators are provided on the bottom of this form for your review Can you please further clarify the etiology of Chest pain? Is Chest Pain associated with: Please check appropriate box(es): [ ] ACS [X] GERD [X ] CAD [ ] Other diagnosis please specify [ ] Unable to determine Physician Signature: Date/Time: For continuity of documentation, please document condition throughout progress notes and discharge summary. Thank You. To be completed by CDI/Coding staff for physician review: Present Clinical Indicators - Signs / Symptoms / Labs Results and Location in Medical Record [ x ] Chest Pain, low suspicion for ACS H and P pg.3 [ x ] Suspect GERD as the underlying cause but pt has multiple risk H and P pg.3 [ x ] Episodes of substernal chest pain H and P pg.4 [ x ] Troponin 0.0150.012, 0.010 H and P pg.5 [ x ] Atypical chest clovis 2/2 GERD vs ACS H and P pg.6 [ x ] Low grade reversible ischemia inferior lateral wall midportion left ventricle Stress test 03/10 pg.1 [ x ] Chest pain multifactorial 2/2 GERD and CAD Family Med PN pg.2 [ x ] Abnormal stress test presumed CAD Family Med PN pg.4 [ x ] Low risk scan small area ischemia Cardiology PN pg.4 03/22 [ x ] Abnormal stress study Consult pg.2 Present Risk Factors Results and Location in Medical Record [ x ] ESRD H and P pg.1 [ x ] Obesity H and P pg.1 [ x ] HTN H and P pg.1 [ x ] DM H and P pg.1 [ x ] GERD Family Med PN pg.2 [ x ] CAD Family Med PN pg.2 [ x ] Former Smoker Family Med PN pg.2 Present Treatments Results and Location in Medical Record [ x ] Cardiology Consult Dr. Mcginnis 03/22 [ x ] Stress Test Stress test 03/10 pg.1 [ x ] Nitroglycerin 0.4 SL MAR [ x ] Tums 1000mg PO MAR [ x ] Aspirin 81 mg PO MAR [ x ] IV Fluids MAR CDS/Powder Core Tester Signature: Srinivas Santos Phone #: ext [phone] Date/Time: 03/24/2020 This is a permanent part of the Medical Record [facility]
== END 2020-03-22 13:20 | DRG 391 ==
LOC: 2NO 12:50 → INTOOBSV 12:50 → OBSVTOIN 03-20 15:13
PROVIDERS: ADMIT Family Medicine; ATTEND Family Medicine
PROC: 5A1D70Z Performance of Urinary Filtration, Intermittent, Less than 6 Hours Per Day (ICD-10-PCS; principal; 2020-03-20)
DX: K21.9 Gastro-esophageal reflux disease without esophagitis (principal); N18.6 End stage renal disease; I69.351 Hemiplegia and hemiparesis following cerebral infarction affecting right dominant side; I12.0 Hypertensive chronic kidney disease with stage 5 chronic kidney disease or end stage renal disease; I25.10 Atherosclerotic heart disease of native coronary artery without angina pectoris; E11.22 Type 2 diabetes mellitus with diabetic chronic kidney disease; Z20.828 Contact with and (suspected) exposure to other viral communicable diseases; E11.51 Type 2 diabetes mellitus with diabetic peripheral angiopathy without gangrene; E83.39 Other disorders of phosphorus metabolism; E66.9 Obesity, unspecified; Z89.612 Acquired absence of left leg above knee; Z89.611 Acquired absence of right leg above knee; Z99.2 Dependence on renal dialysis; Z79.82 Long term (current) use of aspirin; Z79.899 Other long term (current) drug therapy; Z87.891 Personal history of nicotine dependence; Z79.84 Long term (current) use of oral hypoglycemic drugs; Z68.37 Body mass index [BMI] 37.0-37.9, adult
CPT/HCPCS: 36416; 78452; 80053; 80061; 83036; 84443; 85025; 85027; 93017; 94760; 96372; A9500; G0378; J0360; J1644; J2785